=== PATIENT | female | born 1960 | race Caucasian/White ===

== ENCOUNTER 2016-11-10 07:30 | Inpatient (IN) | payer BC ==
--- NOTE | 2017-01-06 16:50 | HP ---
HISTORY AND PHYSICAL: DATE OF ADMISSION/SURGERY: 01/14/17 PROCEDURE: Revision left uni knee to total knee arthroplasty. CHIEF COMPLAINT: Left knee pain. HISTORY OF PRESENT ILLNESS: Ms. Caraballo is a 56-year-old female who underwent a partial knee replacement in July 2015. She continues to have pain in the left knee and has failed conservative management and has elected to proceed with a revision/conversion to a total knee arthroplasty on the left. The surgery is scheduled for 01/14/[address] Arciniega. PAST MEDICAL HISTORY: 1. Hypothyroidism. 2. High cholesterol. 3. Sleep apnea. PAST SURGICAL HISTORY: 1. Partial thyroidectomy. 2. Left partial knee replacement. 3. Cholecystectomy. 4. Hysterectomy. 5. Gastric sleeve. CURRENT MEDICATIONS: 1. Levothyroxine. 2. Crestor. 3. Effexor. 4. Vitamin D. 5. Tramadol. ALLERGIES: To AUGMENTIN. FAMILY HISTORY: Hypertension, heart disease, coronary artery disease. Pancreatic, colon and lung cancer. SOCIAL HISTORY: This is a 56-year-old female, she lives with her . She is retired. She does not smoke or use drugs. Uses occasional alcohol. REVIEW OF SYSTEMS: A complete 14-point review of systems was reviewed with the patient, all was negative or noncontributory except for history of hypothyroidism status post partial thyroidectomy. PHYSICAL EXAMINATION GENERAL: She is well developed, well nourished, in no acute distress. VITAL SIGNS: She stands 5 feet 6 inches tall, weighs 214 pounds. Her blood pressure is 120/80, heart rate is 76. HEENT: Normocephalic, atraumatic. NECK: Supple. No palpable lymph nodes. Trachea is midline. CARDIOLOGIC: Regular rate and rhythm. Strong S1 and S2. PULMONARY: Lungs are clear to auscultation bilaterally. ABDOMEN: Soft, nontender, nondistended. MUSCULOSKELETAL: Left lower extremity, the skin is intact. She has tenderness over the medial and lateral joint line. She has a mild joint effusion. She has 2+ dorsalis pedis pulses and intact sensation. NEUROLOGICAL: She is alert and oriented x3. Cranial nerves II through XII are intact. ASSESSMENT AND PLAN: Ms. Caraballo is a 56-year-old female who complains of left knee pain. She underwent a partial total knee in July 2015 and plans to have it revised and converted to a total knee replacement with Dr. Arciniega on 01/14/17. Dr. Arciniega discussed the risks and benefits of the surgery at today's visit and all of her questions were answered. Coumadin, Colace and Percocet were sent to her pharmacy for postoperative pain control and DVT prophylaxis. She will see Dr. Arciniega back 10 to 14 days after the surgery. ALEA MCKAY [id number]/[facility] #: [id number] MTDD
[2017-01-14] MEDS ORDERED: Famotidine IV* 10 MG/ML 2 ML (20 mg) IV ONE (06:00)
[2017-01-14] MEDS ORDERED: Buffered Lidocaine 1% SYRIN* 3 ML/SYR SYRINGE INTRADERM ONE (06:00)
[2017-01-14] MEDS ORDERED: Dexamethasone IV* 4 MG/ML 1 ML (4 MG) IV SLOW PU ONE (06:00)
[2017-01-14] MEDS ORDERED: fentaNYL* 50 MCG/ML 2 ML VIAL (100 MCG VIAL) ONE ×3 (07:23→10:52)
[2017-01-14] MEDS ORDERED: Midazolam* 1 MG/ML 5 ML VIAL (5 MG) ONE (07:23)
[2017-01-14] MEDS ORDERED: HYDROmorphone* 1 MG/ML 1 ML SYR ONE ×3 (07:23→12:00)
[2017-01-14] MEDS ORDERED: Morphine PF AMP (0.5MG/ML)* 5 MG/10 ML AMP ONE (07:23)
[2017-01-14] MEDS ORDERED: Dexamethasone IV* 4 MG/ML 1 ML (4 MG) ONE (07:58)
[2017-01-14] MEDS ORDERED: Famotidine IV* 10 MG/ML 2 ML (20 mg) ONE (07:58)
[2017-01-14] MEDS ORDERED: Clindamycin 900 MG IVPREMIX(* 900 MG/50 ML SDV IV ONE (07:58)
[2017-01-14] MEDS ORDERED: Dexmedetomidine* 200 MCG/2 ML 2 ML VIAL ONE (08:03)
[2017-01-14] MEDS ORDERED: Propofol* 10 MG/ML 20 ML BTL IV PUSH ONE ×2 (08:03→13:04)
[2017-01-14] MEDS ORDERED: Bupivacaine 0.5% SDV PF* 30 ML VIAL ONE ×2 (08:03→12:02)
[2017-01-14] MEDS ORDERED: PROCHLORPERAZINE INJ 5 MG/ML 2 ML VIAL IV PRN ×2 (08:48→10:29)
[2017-01-14] MEDS ORDERED: Ondansetron INJ* 2 MG/ML VIAL IV PRN ×2 (08:48→10:29)
[2017-01-14] MEDS ORDERED: DiMENhydriNATE IV* 50 MG/ML VIAL IV PUSH PRN ×2 (08:48→10:29)
[2017-01-14] MEDS ORDERED: fentaNYL* 50 MCG/ML 2 ML VIAL (100 MCG VIAL) IV PRN (08:48)
[2017-01-14] MEDS ORDERED: Naloxone* 0.4 MG/ML 1 ML VIAL IV PRN (10:29)
[2017-01-14] MEDS ORDERED: diPHENhydraMINE IV* 50 MG/ML 1 ml VIAL (BENADRYL) IV PRN (10:29)
[2017-01-14] MEDS ORDERED: Polyethylene Glycol 3350* 17 GM PACKET PO PRN (13:49)
[2017-01-14] MEDS ORDERED: LACTULOSE* 30 ML UDC PO PRN (13:49)
[2017-01-14] MEDS ORDERED: Bisacodyl SUPP* 10 MG SUPP PR PRN (13:49)
[2017-01-14] MEDS ORDERED: Acetaminophen TAB* 325 MG PO PRN (13:49)
--- NOTE | 2017-01-14 14:34 | RAD ---
HISTORY: Status post left knee arthroplasty COMPARISONS: January 06, 2017 VIEWS: 2, Frontal and lateral views of the left knee FINDINGS: BONE DENSITY: Normal. BONES: The patient is status post left knee arthroplasty. There is no hardware failure or osteolysis. JOINTS: The patient is status post left knee arthroplasty ALIGNMENT: There is no dislocation. SOFT TISSUES: Unremarkable. OTHER FINDINGS: None. IMPRESSION: STATUS POST LEFT KNEE ARTHROPLASTY
[2017-01-14] MEDS ORDERED: Nalbuphine* 20 MG/ML 1 ML VIAL ONE (16:27)
[2017-01-14] MEDS: Nalbuphine* 20 MG/ML 1 ML VIAL IV PRN (16:32)
[2017-01-14] MEDS ORDERED: Warfarin TAB(*) 4 MG PO ONE (17:00)
[2017-01-14] MEDS: Clindamycin 600 MG IVPREMIX(* 600 MG/50 ML SDV IV SCH (17:20)
[2017-01-14] MEDS: oxyCODONE/Acetamin 5/325 MG* TAB PO PRN ×2 (19:11→23:53)
[2017-01-14] MEDS ORDERED: Venlafaxine EXT RELEASE CAP* 75 MG PO SCH (21:00)
[2017-01-14] MEDS: Magnesium Hydroxide LIQ* 30 ML UDC PO SCH (21:15)
[2017-01-14] MEDS: Docusate CAP* 100 MG PO SCH (21:15)
[2017-01-14] MEDS: VENLAFAXINE 75 MG PO SCH (21:42)
[2017-01-15] MEDS: Clindamycin 600 MG IVPREMIX(* 600 MG/50 ML SDV IV SCH ×2 (01:25→08:20)
[2017-01-15] MEDS: Nalbuphine* 20 MG/ML 1 ML VIAL IV PRN (01:29)
[2017-01-15] MEDS ORDERED: Morphine INJ* 10 MG/ML 1 ML SYRINGE IV PRN (02:00)
[2017-01-15] MEDS ORDERED: oxyCODONE/Acetamin 5/325 MG* TAB PO PRN (02:00)
[2017-01-15] MEDS ORDERED: Ondansetron INJ* 2 MG/ML VIAL IV PRN (02:00)
[2017-01-15] MEDS ORDERED: Ondansetron TAB* 4 MG PO PRN (02:00)
--- NOTE | 2017-01-15 02:08 | OP ---
DATE OF OPERATION: 01/14/17 - ROOM #340 DATE OF : 62 SURGEON: Babita Arciniega MD BARREL WASHER: ALEA Roberson ANESTHESIOLOGIST: Dr. Bhardwaj. ANESTHESIA: Spinal with adductor canal block. PRE-OP DIAGNOSIS: Failed painful left medial uni-arthroplasty secondary to periprosthetic fracture and ligamentous instability. POST-OP DIAGNOSIS: Failed painful left medial uni-arthroplasty secondary to periprosthetic fracture and ligamentous instability. OPERATIVE PROCEDURE: Revision, left total knee arthroplasty. INDICATIONS: Ms. Caraballo is a 56-year-old female, who underwent a left knee medial uni-arthroplasty at an outside facility approximately one year ago. Since the time of surgery, she continued to have severe left knee pain and post- operatively without increasing valgus deformity and MCL incompetence. When she first saw me in clinic, the valgus deformity and MCL incompetence were obvious. Radiographs showed patellar fracture longitudinally along the medial patellar facet. We allowed this to heal nonoperatively. The patient then went on to have a fall and I questioned a medial tibial plateau fracture. We allowed this to heal as well. The patient wished to undergo revision left total knee arthroplasty due to continued pain, instability in the knee, and decreased quality of life. Informed consent was obtained from the patient. She understood the risks of procedure included but were not limited to bleeding, infection, damage to nearby structures, continued pain, continued instability, need for further surgery, intraoperative fracture, nerve palsy, stiffness or loss of motion, hardware failure or loosening, stroke, heart attack, blood clot , and . She wished to proceed. COMPLICATIONS: None. TOURNIQUET TIME: 73 minutes. ESTIMATED BLOOD LOSS: 400 cc. HARDWARE USED: This is a cemented [employer] total knee hardware. Two packages of Simplex cement with tobramycin were used. For the femur, a size 5 left narrow Oxinium femoral component. For the tibia, a size 3 left tibial baseplate, 32-mm 3-peg All-Poly patella, and for the insert, a 50-mm constrained articular insert size 3-4. INTRAOPERATIVE FINDINGS: Intraoperatively, the patient was noted to have a 20- degree valgus deformity with MCL incompetence. LCL was competent. The patient has minimal bone loss along the medial femoral condyle distally and posteriorly after removal of the implant. There was some minimal bone loss along the medial tibial plateau with removal of the implant. No obvious fracture around the medial tibial plateau. The prior patellar fracture was visible. Patella had significant loss of cartilage and this was able to be resurfaced without difficulty. DESCRIPTION OF PROCEDURE: Ms. Caraballo was identified in the preanesthesia unit. Her left lower extremity was marked as the correct operative side. Informed consent was signed and placed in the chart. The patient was taken to the operating room and placed under spinal anesthesia with an adductor canal block. Trujillo catheter was placed. Thigh-high tourniquet was placed on the left thigh. The left lower extremity was prepped and draped in the usual sterile fashion. Preop time- out was made to correctly identify the patient's side and site. Appropriate perioperative antibiotics were given within 1 hour of incision. Tourniquet was inflated and total tourniquet time for this procedure was 73 minutes. The patient's prior incision was used and this was extended another 5 cm proximally. Incision was carried down to the extensor mechanism. A new 10 blade was used to make a standard medial parapatellar arthrotomy. Patella was subluxed laterally. Joint fluid was obtained with culture swabs and sent for cultures and sensitivities. Soft tissue sample was also obtained and sent for cultures and sensitivities. There was no obvious purulence or infection. Uni- arthroplasty was clearly visible. The MCL was incompetent, which was known preoperatively. The polyethylene spacer was easily removed with an osteotome. Electrocautery was used to remove any fibrous scar tissue from the medial or lateral gutter. Also, suprapatellar pouch had some fibrous scar tissue, which was removed. Electrocautery was then used to conservatively elevate soft tissue off the superomedial tibia to the mid sagittal plane. The knee was flexed up. The anterior horn of the lateral meniscus and ACL were sharply released. A small oscillating saw was then used to disrupt the cement hardware junction of the femoral and tibial component. This was further broken with a flexible osteotome. A bone tamp was then used to easily remove the femoral component with no significant bone loss associated. Next, a rigid osteotome was used to carefully remove the tibial component with no significant bone loss. There was some cement along the medial tibial plateau. Slight bone loss along the distal and posterior aspect of the medial femoral condyle. A drill was used to enter the distal femur. Intramedullary distal femoral cutting guide was placed, which was 3-degree valgus and this was pinned on the distal femur. Allowance was made for the prior implant. Oscillating saw was used to make the distal femoral cut. Next, the external rotation guide was carefully pinned on the distal femur. Distal femur was sized to a size 5. The size 5 left multi- cutting jig was pinned on the distal femur. Oscillating saw was used to make the appropriate chamfer cut. It was noted that there was only minimal bone loss along the distal and posterior medial femoral condyle. Chamfer cuts did take some bone with all four chamfer cuts. PCL was completely released and the tibia was subluxed anteriorly. There was a large amount of osteophyte along the posteromedial tibia and this was removed carefully. Extramedullary tibial cutting guide was pinned on the proximal tibia. 9 mm of bone was taken off the lateral side. This did take 1 mm of bone and cement along the medial tibial plateau. The knee was brought out into full extension. The spacer block had good fit. Once again, the MCL laxity was noted. Flexion and extension gaps were well balanced. Knee was flexed up. The lamina assistant dean was placed both medially and laterally. Any remaining meniscus was carefully removed with electrocautery. Curved osteotome was used to remove any posterior osteophytes. Tibial tray and drop charles once again confirmed satisfactory proximal tibial cut. Size 5 left narrow femoral component trial was impacted on to the distal femur and had good fit. The box for the posterior stabilized implant was prepared using a reamer and box cut osteotome. Size 3 tibial trial with a 13-mm constrained insert trial was placed and the knee was taken through range of motion. The knee had much improved medial and lateral ligamentous stability. There was full extension to 130 degrees of flexion with good patellofemoral tracking. The patella was everted at this point. Prior medial patellar facet fracture was noted. 9 mm of bone and cartilage was carefully removed from the patella using an oscillating saw. Patella was sized to a size 32. Three peg holes were drilled to the size 32 patella. 32 trial patella was placed and the knee was taken through range of motion. The knee had good patellofemoral tracking. C-arm was used at this point to ensure proximal tibial cut was satisfactory. The AP view showed satisfactory proximal tibial cut. All trials were carefully removed. The tibia was subluxed anteriorly and sized to a size 3. Any cement remaining was carefully removed with a curette from the medial tibial plateau. A size 3 keel punch was used to prepare the proximal tibia. All bony cut surfaces were copiously irrigated with sterile saline and dried. Final implants were cemented into place starting with the tibia followed by the femur and lastly the patella. A 15-mm insert trial was placed while the knee was brought out into full extension. The cement was allowed to fully cure. Tourniquet was turned down at 73 minutes. Once the cement had fully cured, the insert trial was removed. Any excess cement was carefully removed. Electrocautery was used to obtain meticulous hemostasis. Final insert chosen was a 15-mm constrained articular insert. This was locked into position on the tibial tray without difficulty. Stability of the insert was checked and rechecked and noted to be stable. Final range of motion was full extension to 125 degrees of flexion. There was good alignment with about 3 degrees of valgus. The knee was copiously irrigated with sterile saline. The extensor mechanism was closed over medium Hemovac drain using interrupted #1 Vicryls. The rest of the incision was closed in a layered fashion using 0 and 2-0 Vicryls. Skin was closed using running 3-0 nylon suture. Sterile Xeroform, 4x4s, and Webril were used to cover the incision. Herman wrap and cold pack were placed over this. The patient's anesthesia was reversed without difficulty. She was taken to the PACU in stable condition. Intended weightbearing will be weightbearing as tolerated. Intended DVT prophylaxis will be Coumadin with Lovenox bridge. [id number]/[facility] #: [id number] ALEXANDER
[2017-01-15] MEDS: oxyCODONE/Acetamin 5/325 MG* TAB PO PRN ×4 (04:49→20:08)
[2017-01-15] MEDS: diPHENhydraMINE IV* 50 MG/ML 1 ml VIAL (BENADRYL) IV PRN ×2 (04:54→11:31)
[2017-01-15] MEDS: Levothyroxine TAB* 100 MCG TAB PO SCH (05:38)
[2017-01-15 06:29] LABS: Hematocrit 33 % (35-47); Hemoglobin 10.8 g/dl (12.0-16.0)
[2017-01-15 06:51] LABS: BUN/Creatinine Ratio 18.2 (8-20); Calcium 8.3 mg/dL (8.6-10.3); EGFR African American 119.6 (>60)
--- NOTE | 2017-01-15 07:37 | PN ---
Progress Note - Progress Note SOAP: Subjective: Pt. reports pain is controlled. Objective: LLE - drain removed with tip intact, 300 cc ss drainage. distally +df/pf, full sens lt, 2+ dp pulse. Vital Signs: Temp Pulse Resp BP Pulse Ox 98.0 F 81 18 99/48 96 01/15/17 04:27 01/15/17 04:27 01/15/17 06:49 01/15/17 04:27 01/15/17 04:27 Laboratory Results - last 24 hr 01/15/17 01/15/17 01/15/17 06:06 06:06 06:06 Hgb 10.8 L Hct 33 L INR (Anticoag Therapy) 1.06 Sodium 135 Potassium 4.0 Chloride 103 Carbon Dioxide 28 Anion Gap 4 BUN 12 Creatinine 0.66 Est GFR ( Amer) 119.6 Est GFR (Non-Af Amer) 93.0 BUN/Creatinine Ratio 18.2 Glucose 188 H Calcium 8.3 L Assessment: 56 yo F pod 1 s/p revision LTKA Plan: wbat lle - mcl incompetence so higher fall risk pt/ot 8 mg coumadin tonight, lovenox bridge plan d/c to home 4 AM
[2017-01-15] MEDS: VENLAFAXINE 75 MG PO SCH ×2 (08:19→20:07)
[2017-01-15] MEDS: Vitamin THERAPEUTIC TAB PO SCH (08:19)
[2017-01-15] MEDS: Docusate CAP* 100 MG PO SCH ×2 (08:19→20:07)
[2017-01-15] MEDS: oxyCODONE TAB* 5 MG TAB PO PRN ×2 (08:19→13:02)
[2017-01-15] MEDS: Magnesium Hydroxide LIQ* 30 ML UDC PO SCH ×2 (08:20→20:07)
[2017-01-15] MEDS: Atorvastatin* 10 MG TAB PO SCH ×2 (10:48→20:07)
[2017-01-15] MEDS: Enoxaparin(*) 30 MG/0.3 ML SYR SUBCUT SCH (11:32)
[2017-01-16] MEDS: oxyCODONE/Acetamin 5/325 MG* TAB PO PRN ×3 (00:08→08:15)
[2017-01-16] MEDS: Levothyroxine TAB* 100 MCG TAB PO SCH (05:37)
[2017-01-16 06:32] LABS: Hematocrit 33 % (35-47); Hemoglobin 10.7 g/dl (12.0-16.0)
[2017-01-16] MEDS: oxyCODONE TAB* 5 MG TAB PO PRN (07:05)
[2017-01-16] MEDS: Magnesium Hydroxide LIQ* 30 ML UDC PO SCH (07:09)
[2017-01-16 07:39] VITALS: BP 123/66
[2017-01-16] MEDS: Vitamin THERAPEUTIC TAB PO SCH (08:11)
[2017-01-16] MEDS: VENLAFAXINE 75 MG PO SCH (08:11)
[2017-01-16] MEDS: Docusate CAP* 100 MG PO SCH (08:11)
[2017-01-16] MEDS: Enoxaparin(*) 30 MG/0.3 ML SYR SUBCUT SCH (10:10)
--- NOTE | 2017-01-16 10:18 | PN ---
Progress Note - Progress Note SOAP: SOAP: Subjective: Pt was seen this morning while in bed. She states that she is doing quite well. Pain is well controlled. Pt states that she is ready to go home today. She states she is doing well in PT. Objective: LLE - sensation is intact to light touch distally. She is able to dorsiflex and planterflex ankle. 2+ dp and pt pulses. Vital Signs Temp 98.5 F 01/16/17 07:21 Pulse 83 01/16/17 07:21 Resp 18 01/16/17 10:01 BP 123/66 01/16/17 07:21 Pulse Ox 97 01/16/17 07:51 Intake & Output 01/15/17 01/16/17 01/16/17 18:59 06:59 18:59 Intake Total 540 880 210 Output Total 2200 1200 1300 Balance -1660 -320 -1090 Intake: Oral 540 880 210 Output: Urine 500 1200 1300 Trujillo 1700 Assessment: POD2 s/p revision LTKA Plan: wbat lle - mcl incompetence so higher fall risk morning session of pt/ot Pt will be discharged on Aspirin 325 bid for DVT prophylaxis Pt will sent oxymorphone 15mg and Oxycodone 5mg Pt will follow up in office in 10 - 14 days
[2017-01-16] MEDS ORDERED: Enoxaparin(*) 30 MG/0.3 ML SYR SUBCUT ONE (10:59)
--- NOTE | 2017-01-18 07:50 | DS ---
DISCHARGE SUMMARY: DATE OF ADMISSION: 01/14/17 DATE OF DISCHARGE: 01/16/17 PROVIDER: Dr. Babita Arciniega. ADMITTING DIAGNOSIS: Revision left total knee arthroplasty. CONSULTATIONS: Physical Therapy and Occupational Therapy. HISTORY OF PRESENT ILLNESS: A 56-year-old female who underwent a partial knee replacement in July 2015. Continues to have pain in the left knee and wanted to pursue a revision to a left total knee arthroplasty. HOSPITAL COURSE: The patient was admitted to [facility] on 01/14/17 and underwent a revision left total knee arthroplasty. No complications. The patient recovered briefly in the postop anesthesia care unit and was then transferred to the short stay surgical unit in stable condition. On postoperative day #1, the patient's H and H were 10.8 and 33. INR was 1.06 after 8 mg of Coumadin the night before. Dressing was clean, dry, and intact. Left lower extremity was neurovascularly intact. She could demonstrate dorsiflexion, plantar flexion, and good strength. The patient was able to get out of bed with physical therapy. Pain was controlled with oxycodone 10 mg. On postop day 2, the urinary catheter was discontinued and the patient was able to void without difficulty. Incision was found to be benign with minimal drainage, no erythema or warmth. The patient's H and H were 10.7 and 33. INR was 1.21. Pain was controlled with oxycodone 10 again. The patient was able to ambulate using a rolling walker. The patient's pain was well controlled and found to be stable for discharge. Throughout the hospital course, vital signs remained stable and the patient was afebrile. DISCHARGE CONDITION: Good. DISCHARGE MEDICATIONS: 1. Aspirin 325 b.i.d. 2. Oxymorphone 15 mg. 3. Oxycodone 5 mg. HOME MEDICATIONS TO RESUME: 1. Levothyroxine. 2. Crestor. 3. Effexor. 4. Vitamin D. DISCHARGE INSTRUCTIONS: For pain and swelling, utilize the cryotherapy unit. Take the oxycodone/Percocet 5/325 every 4 to 6 hours as needed for pain. Take oxymorphone 15 mg 1 tab every 12 hours as needed for pain. DVT prophylaxis: Please take aspirin 325 mg 1 tab twice a day. Continue weightbearing as tolerated on the left lower extremity. Follow up in 10 to 14 days to have sutures removed. Dressing to be kept clean and dry. Small amount of clear drainage or bleeding could be normal. Call office if swelling or pain in your calf muscle develops, thick white or greenish discharge is coming from the wound, if wound has increased in redness, temperature greater than 101.5. Go to the ER if you experience: 1. Chest pain. 2. Breathing problems. ALEA VELASQUEZ [id number]/[facility] #: [id number] ALEXANDER
== END 2017-01-16 11:40 | disposition home or self-care (01) | DRG 302 ==
LOC: AA 01-14 07:50 → SSU 01-14 15:58
PROVIDERS: ADMIT Orthopaedic Surgery Adult Reconstructive Orthopaedic Surgery; ATTEND Orthopaedic Surgery Adult Reconstructive Orthopaedic Surgery
PROC: 0SPD0JZ Removal of Synthetic Substitute from Left Knee Joint, Open Approach (ICD-10-PCS; 2017-01-14)
PROC: 0SPD09Z Removal of Liner from Left Knee Joint, Open Approach (ICD-10-PCS; 2017-01-14)
PROC: 0SUW09Z Supplement Left Knee Joint, Tibial Surface with Liner, Open Approach (ICD-10-PCS; 2017-01-14)
PROC: 0SRD0J9 Replacement of Left Knee Joint with Synthetic Substitute, Cemented, Open Approach (ICD-10-PCS; principal; 2017-01-14 10:00)
DX: T84.84XA Pain due to internal orthopedic prosthetic devices, implants and grafts, initial encounter (principal); S82.142A Displaced bicondylar fracture of left tibia, initial encounter for closed fracture; M97.12XA Periprosthetic fracture around internal prosthetic left knee joint, initial encounter; I10 Essential (primary) hypertension; M25.362 Other instability, left knee; M21.062 Valgus deformity, not elsewhere classified, left knee; E03.9 Hypothyroidism, unspecified; E78.00 Pure hypercholesterolemia, unspecified; G47.33 Obstructive sleep apnea (adult) (pediatric); Y83.8 Other surgical procedures as the cause of abnormal reaction of the patient, or of later complication, without mention of misadventure at the time of the procedure; M25.762 Osteophyte, left knee; M19.90 Unspecified osteoarthritis, unspecified site; Z90.710 Acquired absence of both cervix and uterus; Z98.84 Bariatric surgery status; Z88.0 Allergy status to penicillin; Z82.49 Family history of ischemic heart disease and other diseases of the circulatory system; Z80.0 Family history of malignant neoplasm of digestive organs; Z80.1 Family history of malignant neoplasm of trachea, bronchus and lung; Z87.891 Personal history of nicotine dependence; Z79.82 Long term (current) use of aspirin; Y79.2 Prosthetic and other implants, materials and accessory orthopedic devices associated with adverse incidents; Y92.9 Unspecified place or not applicable; W19.XXXA Unspecified fall, initial encounter
CPT/HCPCS: 36415; 80048; 85014; 85018; 85610; 87070; 87073; 87205; 88300; 94760; A9270-GY; C1776; J1100; J1170; J1200; J1650; J2250; J2300; J2704; J3010

== ENCOUNTER 2018-01-28 07:09 | Day surgery (SDC) | payer BC ==
--- NOTE | 2018-01-21 00:46 | HP ---
CC: Dr. Carl Carroll, [facility]; [facility] * HISTORY AND PHYSICAL: DATE OF ADMISSION: 01/28/18 ATTENDING SURGEON: Ginger Lange MD * (DICTATED BY ALEA MURDOCK) CHIEF COMPLAINT: Right breast cancer; left breast atypical ductal hyperplasia. HISTORY OF PRESENT ILLNESS: This is a 57-year-old female who underwent routine screening mammography on 01/05/[address] [facility]. The mammogram showed architectural distortion in the left breast and MRI was recommended. That study was performed on 01/12/18, showing an enhancing mass in the right breast at the 12 o'clock position measuring up to 0.8 cm. In addition, architectural distortion in the left breast was confirmed which was consistent with similar finding on the mammogram. These changes were located around the 2:30 position on the left breast, measuring up to 1.5 cm in greatest dimension. The patient had undergone prior biopsy of a benign lesion in the left breast 3 o'clock position in 2011. A biopsy clip was left in place at that time. Biopsies of both the right breast mass and left breast architectural distortion were performed on 01/12/18. The right breast lesion 12 o'clock position consistent with invasive carcinoma with lobular features. The biopsy on the left showed radial scar with proliferative fibrocystic changes and focal atypical ductal hyperplasia. A surgical referral was made and the patient was seen in the office by Dr. Lange on 01/18/18. The patient' s past breast history is outlined in her chart record. Her only prior biopsy was that on the left as noted above. She did undergo ROSE with BSO for benign disease in 2003 and did take supplemental estrogen for 4 to 5 year period thereafter. Her family history is positive for breast cancer in a maternal grandmother who around age 74 from unrelated causes and a paternal grandmother who in her late 60s of ovarian cancer. The patient was seen in the office by Dr. Lange on 01/18/18. Examination at that time showed moderate ecchymosis in the right superior breast and minor ecchymosis in the lateral aspect of the left breast with nodularity palpable at both sites. Also noted was shotty left lymph nodes. There were no other discrete or dominant masses in either breast. Dr. Lange has discussed with her the options for surgery, the indications, risks, benefits and alternatives. The patient would like to proceed as scheduled with excision right breast cancer after needle localization with sentinel lymph node biopsy. Also, she will undergo concurrently excision of left breast atypical ductal hyperplasia following needle localization. Of note, a biopsy clip was placed after each of the most recent biopsy procedures and these details were discussed specifically with the radiologist. PAST MEDICAL HISTORY: 1. Hypothyroidism (on replacement). 2. History of morbid obesity (status post sleeve gastrectomy) with net weight loss of approximately 25 pounds. 3. GERD. 4. Obstructive sleep apnea (on CPAP). 5. Hyperlipidemia. 6. Anxiety. PAST SURGICAL HISTORY: Includes: 1. Left breast biopsy as noted above. 2. Left thyroid lobectomy for benign disease. 3. Left total knee replacement in 2017 after prior partial knee replacement. 4. Open cholecystectomy. 5. Laparoscopic sleeve gastrectomy in 2013 done in [place]. CURRENT MEDICATIONS: 1. Meloxicam 15 mg once daily. 2. Levothyroxine 100 mcg once daily. 3. Crestor 20 mg one-half tablet once daily. 4. Effexor 75 mg b.i.d. 5. Omeprazole 20 mg daily. 6. Klonopin 0.5 mg b.i.d. p.r.n. anxiety. DRUG ALLERGIES: AUGMENTIN (hives). (The patient has taken amoxicillin subsequently with no side effects). FAMILY HISTORY: As noted above. SOCIAL HISTORY: The patient is . She has 3 children. 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 She quit smoking over 20 years ago. She drinks alcohol infrequently ( less than 1 drink monthly). She denies any other recreational drug use. REVIEW OF SYSTEMS: General: No recent constitutional symptoms or acute illnesses. Weight has been stable. Cardiovascular: No recent chest pain or palpitations. She was evaluated a number of years ago for chest pain, workup being negative at that time and no recurrent problems. She was previously treated for hypertension before her weight loss surgery. History of heart murmur only during . Respiratory: No history of asthma, chronic cough or shortness of breath. She is treated for sleep apnea with CPAP. GI: GERD symptoms currently controlled. No lower GI symptoms. She has undergone a colonoscopy most recently 3 years ago with 5-year recommended followup and previous polyp removal, all benign. : No problems reported. 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 Endocrine: She is on thyroid replacement. No history of diabetes. PHYSICAL EXAMINATION GENERAL: Well-nourished, well-developed somewhat obese female in no acute distress. VITAL SIGNS: Height 66 inches, weight 220 pounds, BMI 35.5. Blood pressure 128 /80, pulse 80, respirations 16. HEENT: Pupils are equal, round, and reactive. EOMs intact. No conjunctival pallor. Oropharynx: Teeth in good repair. No intraoral lesions. NECK: No cervical or supraclavicular lymphadenopathy. She has a well-healed scar from prior thyroid lobectomy, no masses. LUNGS: Clear to auscultation. No rales or wheezes. HEART: Regular rate and rhythm. No murmur appreciated. BREASTS: Not reexamined (see above per Dr. Lange's exam). ABDOMEN: Soft, nontender to palpation. No palpable masses or organomegaly. GENITALIA: Not done. RECTAL: Not done. BACK: No spinous process or CVA tenderness. EXTREMITIES: No edema. NEUROLOGIC: Grossly intact. SKIN: Warm and dry. No suspicious rashes or lesions. IMPRESSION: 1. Right breast cancer. 2. Left breast atypical ductal hyperplasia. PLAN: 1. Excision right breast cancer (following needle localization) with sentinel lymph node biopsy. 2. Excision left breast atypical ductal hyperplasia (following needle localization). ALEA MURDOCK [id number]/[facility] #: [id number] [facility]ITALKenia
[~2018-01-28 07:09] MED LIST: Buffered Lidocaine 0.9% SYRIN* 5 ML/SYR SYRINGE INTRADERM ONE
[2018-01-28] MEDS ORDERED: Lidocaine 2.5%/Prilocain 2.5%* 5 GM TUBE ONE (07:13)
[2018-01-28] MEDS ORDERED: ceFAZolin 2 GM PREMIX (*) 2 GM/50 ML BAG IVPB ONE (07:13)
--- NOTE | 2018-01-28 09:35 | RAD ---
PROCEDURE: 1. Mammographic needle/wire localization of the right breast 2. Mammographic needle/wire localization of the left breast PREOPERATIVE DIAGNOSIS: Breast cancer, atypical ductal hyperplasia POSTOPERATIVE DIAGNOSIS: Same COMPARISONS: January 12, 2018, January 05, 2018 MODEL AND MOLD MAKER PLASTER: Polo Talamantes MD ANESTHESIA: Local anesthesia with 1% lidocaine without epinephrine FLUOROSCOPY TIME: None CONTRAST: None PROCEDURAL NARRATIVE: The procedure was explained to the patient who indicated understanding. Written and verbal informed consent was obtained. An opportunity was given to ask and answer questions. A timeout was performed. The patient was prepped and draped in the usual sterile fashion. Using mammographic guidance, a needle/wire localization system was advanced to the target lesion in the right breast. Once position was confirmed, the needle was removed using pin pull technique. Post localization mammography was performed. The wound was dressed and the wire was secured. A timeout was performed. The patient was prepped and draped in the usual sterile fashion. Using mammographic guidance, a needle/wire localization system was advanced to the target lesion in the left breast. The clip was distinguished from a previous biopsy marker clip that is visible on earlier imaging.. Once position was confirmed, the needle was removed using pin pull technique. Post localization mammography was performed. The wound was dressed and the wire was secured. FINDINGS: On the right, a ribbon-shaped clip is noted in the 12:00 position of the right breast. The tip of the wire is closely associated with a clip. On the left, a T-shaped clip is noted in the left outer breast, in the approximately 3:00 position, corresponding to the most recent biopsy marker clip. This is distinct from a bar-shaped clip in the left upper outer breast that is present on earlier imaging. The tip of the hook wire is in close proximity to the T-shaped clip. SPECIMENS: Histology is pending COMPLICATIONS: None DISPOSITION: The patient tolerated the procedure well, without complications during or immediately following the procedure. The patient was sent to the nuclear medicine suite in good, stable condition. IMPRESSION: 1. TECHNICALLY SUCCESSFUL, UNCOMPLICATED, MAMMOGRAPHICALLY GUIDED NEEDLE/WIRE LOCALIZATION OF THE RIGHT BREAST. 2. TECHNICALLY SUCCESSFUL, UNCOMPLICATED, MAMMOGRAPHICALLY GUIDED NEEDLE/WIRE LOCALIZATION OF THE LEFT BREAST. 3. HISTOLOGY IS PENDING
--- NOTE | 2018-01-28 10:25 | RAD ---
HISTORY: Breast cancer. Lymphoscintigraphy of the breast for the purposes of sentinel node identification. COMPARISONS: Mammogram dated January 28, 2018 TECHNIQUE: Previous imaging was reviewed. The procedure was explained to the patient who indicated that she understood. Written and verbal informed consent was obtained, with an opportunity to ask and answer questions. The breast was marked. A timeout was performed. The patient was prepped and draped in the usual sterile fashion. Technetium 99m sulfur colloid was administered in a subdermal fashion in 4 divided aliquots in a 180 degree arc along the areolar margin of the right breast, centered on the position of the primary breast lesion. Cine and planar imaging was performed. The first appearing axillary node was identified with the overlying skin marked. DOSE: Technetium 99m sulfur colloid, 0.32 millicuries, injected at 9:40 AM FINDINGS: Uptake is noted within a right axillary lymph node. The site of uptake is marked on the overlying skin. OTHER: None IMPRESSION: TECHNICALLY SUCCESSFUL, UNCOMPLICATED, LYMPHOSCINTIGRAPHY OF THE RIGHT BREAST FOR THE PURPOSES OF SENTINEL NODE LOCALIZATION. CPT II Codes: 1673L5O
[2018-01-28] MEDS ORDERED: Propofol* 10 MG/ML 20 ML BTL IV PUSH ONE ×2 (13:02→15:29)
[2018-01-28] MEDS ORDERED: Lidocaine 2% PF * 5 ML VIAL ONE (13:03)
[2018-01-28] MEDS ORDERED: Lidocain 1% EPI 1:100,000 * 30 ML MDV ONE (13:04)
[2018-01-28] MEDS ORDERED: Lidocaine 1% INJ* 10 MG/ML 30 ML SDV ONE (13:05)
[2018-01-28] MEDS ORDERED: Bupivacaine 0.25% SDV* 30 ML ONE ×3 (13:05→16:04)
[2018-01-28] MEDS ORDERED: Clindamycin 900 MG IVPREMIX(* 900 MG/50 ML SDV IV ONE ×2 (13:41→13:42)
[2018-01-28] MEDS ORDERED: fentaNYL* 50 MCG/ML 2 ML VIAL (100 MCG VIAL) ONE ×2 (13:42→16:17)
[2018-01-28] MEDS ORDERED: Succinylcholine* 20 MG/ML 10 ML VIAL ONE (14:24)
[2018-01-28] MEDS ORDERED: Dexamethasone IV* 4 MG/ML 1 ML (4 MG) ONE (15:23)
[2018-01-28] MEDS ORDERED: fentaNYL* 50 MCG/ML 2 ML VIAL (100 MCG VIAL) IV PRN (15:38)
[2018-01-28] MEDS ORDERED: Naloxone* 0.4 MG/ML 1 ML VIAL IV PRN (15:38)
[2018-01-28] MEDS ORDERED: Ondansetron INJ* 2 MG/ML VIAL IV PRN (15:38)
--- NOTE | 2018-01-28 16:36 | BRIEFOPN ---
Brief Operative Note - Surgery Procedures: Procedures REMOVAL OF LINER FROM LEFT KNEE JOINT, OPEN APPROACH (01/14/17) REMOVAL OF SYNTH SUB FROM L KNEE JT, OPEN APPROACH (01/14/17) REPLACE OF L KNEE JT WITH SYNTH SUB, CEMENT, OPEN APPROACH (01/14/17) SUPPLEMENT L KNEE JT, TIBIAL WITH LINER, OPEN APPROACH (01/14/17) 01/28/18 Op Note Pre-op dx: right breast cancer left breast atypical ductal hyperplasia Post-op dx: same Procedure: needle localization excision of left ADH and needle localization excision of right breast cancer and sentinel lymph node biopsy Surgeon: Nazario Asst: Blake Anesth: general EBL: 50cc Complications: none Pt. tolerated procedure well and was transferred to in a stable condition. CLFoster
[2018-01-28] MEDS ORDERED: HYDROcodone/ACETAMIN 5-325 MG* 1 TAB PO PRN ×2 (16:37)
[2018-01-28] MEDS ORDERED: Acetaminophen TAB* 325 MG PO PRN (16:37)
[2018-01-28] MEDS ORDERED: Ondansetron INJ* 2 MG/ML VIAL ONE (17:05)
[2018-01-28] MEDS ORDERED: DiMENhydriNATE IV* 50 MG/ML VIAL ONE (17:23)
[2018-01-28 18:34] VITALS: BP 123/71
--- NOTE | 2018-01-29 01:29 | OP ---
CC: [facility]; Dr. Adria Carroll * DATE OF OPERATION: 01/28/18 - [facility] DATE OF : 62 SURGEON: Ginger Lange MD BICYCLE INSPECTOR: Blake. PRE-OP DIAGNOSIS: Right breast cancer, left breast atypical ductal hyperplasia. POST-OP DIAGNOSIS: Right breast cancer, left breast atypical ductal hyperplasia. OPERATIVE PROCEDURE: Needle localization excision of left breast atypical ductal hyperplasia and needle localization excision of right breast cancer and sentinel lymph node biopsy. INDICATIONS: Ms. Caraballo is a 57-year-old woman recently diagnosed with breast cancer who was also found to have atypical ductal hyperplasia in the other side , so plans were made for surgical intervention. On the morning of surgery, she underwent left breast needle localization and right breast needle localization with sentinel lymph node localization on the right. DESCRIPTION OF PROCEDURE: She was then brought to the operating room. She was placed on the OR table in a supine position and given general anesthesia. The chest wall was prepped and draped in the usual sterile fashion including both axillae. The attention was turned first to the left side. The site of the atypical ductal hyperplasia here after infiltrating with local anesthetic, a curvilinear elliptical incision was made encompassing the wire. Subcutaneous tissue was divided with electrocautery to excise massive tissue from around the wire. At the medial most aspect of this, it was recognized that there appeared to be a hard lesion that was just at the end of the specimen, so the decision was made to remove the specimen, separate the hard lesion from the remainder of the specimen and make 2 specimens out of it. Then, since the wire was at the medial edge of the second specimen, the decision was made to remove third massive tissue as well from medial to the first and second areas. Each specimen was labeled with the usual markings and each specimen was identified as 1, 2, and 3, with 2 being medial to 1, and 3 being medial to 2. Hemostasis was assured with electrocautery and suture ligature. Once this was adequate, additional local was instilled into the wound and closure was accomplished. This was done with 3-0 Vicryl in the subcutaneous layer. The skin was closed with 4-0 Prolene in a subcuticular fashion. Attention was then turned to the right side. Here after infiltrating with local anesthetic, a curvilinear elliptical incision was made encompassing the wire. Subcutaneous tissue was divided with electrocautery to excise the massive tissue from around the wire. In the process of doing this, there were some bleeding that was controlled with suture ligature as well as the usual use of cautery. Once the specimen was out , it was marked in the usual fashion and handed off. Hemostasis was assured with electrocautery. Clips were placed in the cavity to raul its confines and additional local was instilled into the wound prior to closing. Closure was accomplished with 3-0 Vicryl in the subcutaneous layer and the skin was closed with 4-0 Surgipro in a subcuticular fashion. It should be mentioned that the report came back from Radiology for both sides that the specimens contained the abnormalities. Attention was then turned to the right axilla. Here, a curvilinear incision was made in the middle axilla and subcutaneous tissue was divided with electrocautery down to the level of the axillary fat pad. Again there was some bleeding, which was controlled with suture ligature and cautery. [place] node was immediately apparent as confirmed by the navigator identifying elevated counts to the level of 1000. This node was excised using sharp and blunt dissection and clips to control small blood and lymphatic vessels that approached the gland. Ex- vivo, the counts were around 900. a search which was made for additional sentinel node and indeed one other node was identified, it was excised and had counts in situ of around 1200 and ex- vivo of a comparable number. The axillary bed counts were around 90. The wound was checked for hemostasis which appeared adequate and then closure was accomplished with 3-0 Vicryl in the subcutaneous layer and the skin was closed with 4-0 Prolene in a subcuticular fashion. Steri-Strips and dry sterile dressings were applied to all incisions. All sponge and instrument counts were correct. The patient tolerated the procedure well and was transferred to Recovery in a stable condition. [id number]/[facility] #: [id number] [facility]ENTERKenia
== END 2018-01-28 18:45 | disposition home or self-care (01) ==
LOC: SDS 07:09
PROVIDERS: ATTEND Surgery
DX: C50.911 Malignant neoplasm of unspecified site of right female breast (principal); N60.92 Unspecified benign mammary dysplasia of left breast; E78.5 Hyperlipidemia, unspecified; E03.9 Hypothyroidism, unspecified; G47.33 Obstructive sleep apnea (adult) (pediatric); F41.9 Anxiety disorder, unspecified; K21.9 Gastro-esophageal reflux disease without esophagitis
CPT/HCPCS: 78195; 88307; 88342; 88360; A9270-GY; A9541; J0330; J0690; J1100; J1240; J2405; J2704; J3010

== ENCOUNTER 2018-08-12 06:16 | Day surgery (SDC) | payer BC ==
--- NOTE | 2018-08-03 14:01 | HP ---
AMENDED REPORT NOW INCLUDES DESIGNATED COSIGNER CC: Dr. Adria Carroll * PREOPERATIVE HISTORY AND PHYSICAL: DATE OF ADMISSION/SURGERY: 08/12/18 This patient is scheduled for same-day surgery admission by Dr. Lange on Wednesday , 08/12/18. DATE OF PREOPERATIVE HISTORY AND PHYSICAL EXAMINATION: 08/03/18. ATTENDING SURGEON: Ginger Lange MD * (dictated by Gretel Krishnan NP) CHIEF COMPLAINT: Left nipple discharge. HISTORY OF PRESENT ILLNESS: The patient is a 57-year-old female well known to Dr. Lange. The patient is status post right breast cancer treated in January 2018 with lumpectomy followed by chemotherapy and radiation. She also had excision of atypical ductal hyperplasia of the left breast that required no additional treatment. She saw Dr. Lange here in our office on 07/28/18 and reported that 2 days prior to that she was just sitting in a chair and felt wetness on her bra and when she checked, she found she was having drainage from the left breast nipple. She was then referred for mammogram and ultrasound; during the mammogram, she reports that there was a significant amount of drainage from the left nipple. The imaging showed seroma in the lateral left breast, but no other obvious pathology. She denies any other breast changes. She has not noticed any skin dimpling or nipple retraction or any new lumps or pain. Dr. Lange examined the patient and noted yellowish nipple discharge from the left breast and a duct in the superior aspect of the nipple. This was negative for blood. Dr. Lange discussed the findings with the patient and has recommended left breast terminal duct excision as a same-day surgery procedure. She described the nature of surgical procedure, the rationale for the procedure, the relevant risks and benefits, and today I reviewed postoperative care and recovery. The patient has had a chance to ask questions and stated that she understands the information and is satisfied with the answers given to her questions. She will sign surgical consent on the day of surgery. PAST MEDICAL HISTORY: 1. Right breast cancer and atypical ductal hyperplasia of left breast as described in history of present illness. 2. Hypothyroidism, on replacement. 3. History of morbid obesity, status post laparoscopic sleeve gastrectomy with weight loss of approximately 25 pounds. 4. GERD. 5. Obstructive sleep apnea, on CPAP. 6. Hyperlipidemia. 7. Anxiety. PAST SURGICAL HISTORY: 1. Right breast lumpectomy. 2. Left breast excision of atypical ductal hyperplasia. 3. Left thyroid lobectomy for benign disease. 4. Left total knee replacement in 2017 after partial knee replacement. 5. Open cholecystectomy. 6. Laparoscopic sleeve gastrectomy in 2014 done in [place]. CURRENT MEDICATIONS: 1. Meloxicam 15 mg p.o. daily with food. 2. Levothyroxine 100 mcg p.o. daily. 3. Crestor 10 mg p.o. daily. 4. Effexor XR 75 p.o. daily. 5. Vitamin D 2000 international units p.o. daily. 6. Omeprazole 20 mg p.o. daily. 7. Klonopin 0.5 mg 1 tablet b.i.d. 8. Anastrozole 1 mg p.o. daily. 9. Adderall as needed for fatigue. ALLERGIES: AUGMENTIN caused hives. 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 She rarely drinks alcohol and denies the use of other substances. FAMILY HISTORY: Positive for breast cancer in her maternal grandmother who around age 74 from unrelated causes and a paternal grandmother who in her late 60s of ovarian cancer. No family history of anesthesia complications, bleeding tendencies, or clotting disorders. REVIEW OF SYSTEMS: Constitutional: No fevers, chills, excessive fatigue, or weight loss. Endocrine: No diabetes; she is on thyroid replacement for hypothyroidism. Hematologic: No easy bruising or bleeding. No history of blood transfusions. Breasts: As described in history of present illness. Respiratory: No dyspnea on exertion. No chronic cough. Cardiovascular: No anginal chest pain or palpitations. Gastrointestinal: No nausea, vomiting, diarrhea, GI bleeding, or constipation. Genitourinary: No dysuria. Musculoskeletal: No back or chronic joint pain. Integumentary: No chronic rashes or skin changes. Neurologic: No headache, blurred vision. No areas of focal weakness or numbness. General: No history of deep vein thrombosis or pulmonary embolism. No previous anesthesia complications. PHYSICAL EXAMINATION GENERAL SURVEY: The patient is a 57-year-old female, well developed, obese, in no acute distress. VITAL SIGNS: Height 66 inches, weight 225 pounds, body mass index 36.3. Blood pressure 138/80, pulse 72 and regular, respiratory rate 18, temperature 97.8 tympanic. HEENT: Benign. NECK: Supple. No cervical or supraclavicular lymphadenopathy; well-healed scar from prior thyroid lobectomy. LUNGS: Breath sounds bilaterally clear and equal. BREASTS: Symmetric with a scar visible in the lateral aspect of the left breast and a scar visible in the superior aspect of the right breast. The right breast scar has a rounded component medially with some dry skin on it; the right breast is also somewhat edematous after radiation; palpation of the left breast reveals in the lateral aspect a round, smooth mass in the region of the scar, no other discrete masses; there was yellow nipple discharge from a duct in the superior aspect of the nipple that was negative for blood. There is no cervical, supraclavicular, or axillary adenopathy. HEART: Regular rate and rhythm. No murmurs or rubs appreciated. ABDOMEN: Active bowel sounds, soft, multiple well healed surgical scars, nondistended, nontender throughout. No obvious masses or organomegaly or evidence of ventral hernia. PELVIC: Exam deferred. RECTAL: Exam deferred. EXTREMITIES: Warm without edema or skin ulcerations. NEUROLOGIC: Alert and oriented x3. Steady gait. SKIN: Warm, dry, intact. IMPRESSION: Left breast nipple discharge. PLAN: Same-day surgery admission to Dr. Lange's service for left breast terminal duct excision on 08/12/18. NILAY KRISHNAN NP [id number]/[facility] #: [id number] [facility]enia
[~2018-08-12 06:16] MED LIST changes: +Dexamethasone IV* 4 MG/ML 1 ML (4 MG) IV SLOW PU ONE; +Famotidine IV* 10 MG/ML 2 ML (20 mg) IV ONE
[2018-08-12] MEDS ORDERED: Famotidine IV* 10 MG/ML 2 ML (20 mg) ONE (06:55)
[2018-08-12] MEDS ORDERED: Heparin VIAL(*) 5000 UNITS/ML VIAL (FIVE THOUSAND) ONE (06:55)
[2018-08-12] MEDS ORDERED: Clindamycin 900 MG/D5W BAG(*) 900 MG/50 ML BAG IVPB ONE (06:55)
[2018-08-12] MEDS ORDERED: Dexamethasone IV* 4 MG/ML 1 ML (4 MG) ONE (06:55)
[2018-08-12] MEDS ORDERED: Bupivacaine 0.5% W/EPI SDV* 30 ML VIAL ONE (06:56)
[2018-08-12] MEDS ORDERED: Bupivacaine 0.5% SDV PF* 30ML VIAL ONE (06:57)
[2018-08-12] MEDS ORDERED: Lidocaine 1% INJ* 10 MG/ML 30 ML SDV ONE (06:57)
[2018-08-12] MEDS ORDERED: fentaNYL* 50 MCG/ML 2 ML VIAL (100 MCG VIAL) IV PRN (07:28)
[2018-08-12] MEDS ORDERED: Scopolamine 1.5 mg* PATCH TRANSDERM PRN (07:28)
[2018-08-12] MEDS ORDERED: oxyCODONE/Acetamin 5/325 MG* TAB PO PRN (07:28)
[2018-08-12] MEDS ORDERED: Ondansetron INJ* 2 MG/ML VIAL IV PRN (07:28)
[2018-08-12] MEDS ORDERED: Naloxone* 0.4 MG/ML 1 ML VIAL IV PRN (07:28)
[2018-08-12] MEDS ORDERED: DiMENhydriNATE IV* 50 MG/ML VIAL IV PUSH PRN (07:28)
--- NOTE | 2018-08-12 07:40 | PN ---
Progress Note - Progress Note Date of Service: 08/12/18 Note: Surgery When I examined Ms. Caraballo before surgery this morning, there was no nipple discharge. Will cancel surgery and f/u in 1 month. CLFoster
[2018-08-12] MEDS ORDERED: Ondansetron INJ* 2 MG/ML VIAL ONE (07:55)
[2018-08-12] MEDS ORDERED: Midazolam* 1 MG/ML 5 ML VIAL (5 MG) ONE (07:55)
[2018-08-12] MEDS ORDERED: fentaNYL* 50 MCG/ML 2 ML VIAL (100 MCG VIAL) ONE (07:55)
[2018-08-12] MEDS ORDERED: Propofol* 10 MG/ML 20 ML BTL IV PUSH ONE ×2 (07:55)
[2018-08-12] MEDS ORDERED: Lidocaine 2% PF * 5 ML VIAL ONE (08:15)
--- NOTE | 2018-08-12 09:46 | BRIEFOPN ---
Brief Operative Note - Surgery Procedures: Procedures REMOVAL OF LINER FROM LEFT KNEE JOINT, OPEN APPROACH (01/14/17) REMOVAL OF SYNTH SUB FROM L KNEE JT, OPEN APPROACH (01/14/17) REPLACE OF L KNEE JT WITH SYNTH SUB, CEMENT, OPEN APPROACH (01/14/17) SUPPLEMENT L KNEE JT, TIBIAL WITH LINER, OPEN APPROACH (01/14/17) 08/12/18 OP Note Pre-op dx: left breast nipple discharge Post-op dx: same Procedure: left breast terminal duct excision Surgeon: Nazario Asst: none Anesth: local-MAC EBL: 5 cc SCDs on during surgery Abx: given pre-op Complications: none Pt. tolerated procedure well and was transferred to in a stable condition CLFoster
[2018-08-12] MEDS ORDERED: Morphine VIAL* 10 MG/ML 1 ML VIAL ONE (09:52)
[2018-08-12 09:53] VITALS: BP 117/68
--- NOTE | 2018-08-15 03:56 | OP ---
CC: [facility]; Dr. Adria Carroll * DATE OF OPERATION: 08/12/18 - [facility] DATE OF : 62. SURGEON: Ginger Lange MD. RESTORATION ECOLOGIST: There was no facilities maintenance assistant for this case. PRE-OP DIAGNOSIS: Left breast nipple discharge. POST-OP DIAGNOSIS: Left breast nipple discharge. OPERATIVE PROCEDURE: Left breast terminal duct excision. INDICATIONS: Ms. Caraballo is a 57-year-old woman with a history of right breast cancer and left breast atypical ductal hyperplasia who noticed recently that she had some nipple discharge. This prompted the plan for terminal duct excision. DESCRIPTION OF PROCEDURE: On the date of surgery, she was brought to the operating room, placed on the OR table in the supine position and given IV sedation. The left breast was prepped and draped in the usual sterile fashion. After infiltrating with local anesthetic, a probe was inserted into the duct that had been marked preoperatively that produced the discharge. Then an incision was made in a circumareolar fashion laterally and subcutaneous tissue was divided with electrocautery and blunt dissection to elevate flap under the areola. Then in the region of the nipple, blunt dissection was used to identify the duct that contained the probe. Once this was isolated, it was grasped with a mosquito clamp and the probe was removed. The duct was divided between clamps and ligated. Then, tissue from around the duct was excised using electrocautery. Once the specimen was removed, it was marked in the usual fashion with the additional marking of a double stitch identifying the duct. This was handed off as a specimen. Hemostasis was assured with electrocautery and in the process of achieving hemostasis, there was an opening made into the cavity of the previous breast biopsy and some fluid was drained from that cavity. Then, once it appeared that hemostasis was adequate, the wound was irrigated with saline. Irrigation fluid was evacuated and then some additional local was instilled into the cavity. Closure was then accomplished with 3-0 Vicryl in the subcutaneous layer and the skin was closed with 4-0 Prolene in the subcuticular fashion. Steri-Strips and a dry sterile dressing were applied. All sponge and instrument counts were correct. The patient tolerated the procedure well and was transferred to Recovery in a stable condition. [id number]/[facility] #: [id number] [facility]
== END 2018-08-12 09:54 | disposition home or self-care (01) ==
LOC: OR 06:16
PROVIDERS: ATTEND Surgery
DX: N64.52 Nipple discharge (principal); N62 Hypertrophy of breast; D24.2 Benign neoplasm of left breast; E03.9 Hypothyroidism, unspecified; K21.9 Gastro-esophageal reflux disease without esophagitis; E78.5 Hyperlipidemia, unspecified; Z87.891 Personal history of nicotine dependence; Z85.3 Personal history of malignant neoplasm of breast
CPT/HCPCS: 88307; 88341; 88342; J1100; J1644; J2250; J2270; J2405; J2704; J3010

== ENCOUNTER 2019-08-16 11:51 | Emergency (ER) | payer OTHER, BC ==
--- OUTSIDE RECORDS SUMMARY | 2019-08-16 12:06 | XMS REPORT | Continuity of Care Document ---
:1960 External Reference #:[id number] Author Name Babita Arciniega M.D. (transmitted by agent of provider Dorota Franco) Address [address] [place] [address] Care Team Providers Name Role Phone Adria Carroll MD - Internal Care Team Information Staffing Administrator [phone] Medicine Aruna Jaimes MD - Hematology & Care Team Information Staffing Administrator [phone] Oncology Problems Active Problems Provider Date Arthroplasty of knee Babita Arciniega M.D. Onset: 08/26/2016 Periprosthetic osteolysis Babita Arciniega M.D. 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 Onset: 11/04/2016 Localized, primary osteoarthritis Babita Arciniega M.D. Onset: 04/28/2019 Social History Type Date Description Comments Sex Unknown ETOH Use Denies alcohol use Tobacco Use Start: Unknown End: Patient is a former smoker Unknown Smoking Status Reviewed: 08/09/19 Patient is a former smoker Exercise Type/Frequency Exercises sporadically Allergies, Adverse Reactions, Alerts Active Allergies Reaction Severity Comments Date Augmentin Urticaria Moderate 08/26/2016 Medications Active Medications SIG Qnty Indications Ordering Provider Date Meloxicam Take One Tablet 90tabs Kieran Garcia, 03/14/2019 15mg Tablets By Mouth Every M.D. Day With Food as Needed Maximum Daily Dose = 1 Tablet Levothyroxine Sodium once a day Unknown 100mcg Solution Rec Crestor 1 by mouth every Unknown 10mg Tablets day Effexor 1 by mouth twice Unknown 75mg Caps ER 24HR a day Vitamin D 1 by mouth every Unknown 5000Unit day Capsules Omeprazole 1 by mouth every Unknown 20mg Capsules day DR Santillan 1 tablet by Unknown 0.5mg Tablets mouth three times a day as needed Provigil Unknown 200mg Tablets Milam one tab by mouth Unknown 5-325mg Tablets every 4-6 hours as needed pain Medications Administered in Office Medication SIG Qnty Indications Ordering Provider Date Depomedrol 40MG Babita Arciniega M.D. 04/28/2019 Injection Immunizations Description No Information Available Vital Signs Date Vital Result Comment 08/09/2019 9:05am Height 66 inches 5'6" Weight 225.00 lb Heart Rate 100 /min BP Systolic 122 mmHg BP Diastolic 88 mmHg Respiratory Rate 16 /min Body Temperature 97.6 F Pain Level 6 BMI (Body Mass Index) 36.3 kg/m2 04/28/2019 3:30pm Height 66 inches 5'6" Weight 225.00 lb BP Systolic 130 mmHg BP Diastolic 84 mmHg Body Temperature 97.8 F BMI (Body Mass Index) 36.3 kg/m2 Results Test Date Facility Test Result H/L Range Note Laboratory test 02/23/2019 [facility] Surgical SEE RESULT [address] Pathology BELOW [place] [id number] [phone] 1 SEE RESULT BELOW Name: AMANEricSOFY : [address]: Ginger Lange MD Acct: [id number] Unit: [id number] AGE: 58 Location: [facility] Re02/23/19 SEX: F Status: REG REF SPEC: [id number] FIDELIA: 02/23/19-9577 [facility] DR: Ginger Lange MD REQ: [id number] RECD: 02/23/19 STATUS: SOUT _ ORDERED: LEVEL 4 COMMENTS: [id number] FINAL DIAGNOSIS Right breast, excision: --Skin and subcutaneous tissue with prior biopsy site related changes with organizing hematoma with foreign body giant cell reaction. -- No evidence of neoplasia is identified. CLINICAL HISTORY Breast cancer PRE-OPERATIVE DIAGNOSIS GROSS DESCRIPTION The specimen is received in formalin labeled, Right Breast Hematoma Cavity, and consists of a 2.6 x 0.5 cm benoit-white wrinkled elliptical skin fragment excised to maximum depth of 1.5 cm with a central 0.2 x 0.2 cm benoit friable defect. There is a 0.8 x 0.5 x 0.4 cm benoit previously disrupted cavity within the subcutaneous tissue. The specimen is inked, serially sectioned and entirely submitted in cassettes A and B to include cavity in cassette B. Signed by and Reported on: Keshav Stevenson MD 1506 END OF REPORT DEPARTMENT OF PATHOLOGY, [address] [place] [address] Keshav Setvenson M.D. Director [facility] # [id number] Procedures Date Code Description Status 08/09/201957116 Inject/Drain Joint/Bursa Major W/O US Completed 04/28/2019 99495 Inject/Drain Joint/Bursa Major W/O US Completed 02/23/2019 01903 Mastotomy W/Explore/Drain Abscess Deep Completed 01/13/2019 [id number] Mammogram Completed 01/28/2018 [id number] Mammogram Completed Medical Devices Description No Information Available Encounters Type Date Location Provider Dx Diagnosis Office Visit 06/14/2019 [facility] Laboy S21.001D Unspecified open 2:00p AT [facility] [place] [facility] wound of right breast, subsequent encounter Office Visit 04/28/2019 [facility] Babita Arciniega, M25.561 Pain in right knee 2:45p at [facility] M25.461 Effusion, right knee M17.11 Unilateral primary osteoarthritis, right knee Z96.652 Presence of left artificial knee joint Z47.1 Aftercare following joint replacement surgery Office Visit 02/22/2019 9:00a Surgical Ginger Laboy S21.001S [facility] wound of right [employer] Supervisor breast, sequela Assessments Date Code Description Provider 08/09/2019 M25.561 Pain in right knee Babita Arciniega M.D. 08/09/2019 M25.461 Effusion, right knee Babita Arciniega M.D. 08/09/2019 M17.11 Unilateral primary osteoarthritis, right Babita Arciniega M.D. knee 06/14/2019 S21.001D Unspecified open wound of right breast, Ginger Lnage MD subsequent encounter 05/10/2019 S21.001D Unspecified open wound of right breast, Ginger Lange MD subsequent encounter 05/03/2019 S21.001D Unspecified open wound of right breast, Ginger Lange MD subsequent encounter 04/28/2019 M25.561 Pain in right knee Babita Arciniega M.D. 04/28/2019 M25.461 Effusion, right knee Babita Arciniega M.D. 04/28/2019 M17.11 Unilateral primary osteoarthritis, right Babita Arciniega M.D. knee 04/28/2019 Z96.652 Presence of left artificial knee joint Babita Arciniega M.D. 04/28/2019 Z47.1 Aftercare following joint replacement Babita Arciniega M.D. surgery 04/19/2019 S21.001D Unspecified open wound of right breast, Ginger Lange MD subsequent encounter 04/05/2019 S21.001D Unspecified open wound of right breast, Ginger Lange MD subsequent encounter 03/29/2019 S21.001D Unspecified open wound of right breast, Tiago Carlson MD subsequent encounter 03/22/2019 S21.001A Unspecified open wound of right breast, Tiago Carlson MD initial encounter 03/15/2019 S21.001D Unspecified open wound of right breast, Tiago Carlson MD subsequent encounter 03/08/2019 S21.001A Unspecified open wound of right breast, Ginger Lange MD initial encounter 03/01/2019 S21.001A Unspecified open wound of right breast, Ginger Lange MD initial encounter 02/23/2019 N61.1 Abscess of the breast and nipple Ginger Lange MD 02/23/2019 S21.001S Unspecified open wound of right breast, Ginger Lange MD sequela 02/22/2019 S21.001S Unspecified open wound of right breast, Ginger Lange MD sequela Plan of Treatment Future Appointment(s):11/10/2019 9:00 am - Babita Arciniega M.D. at [facility]/09/2019 - Babita Arciniega M.D.M25.561 Pain in right kneeFollow up:Follow up: 3 cqcyzjL40.461 Effusion, right kneeM17.11 Unilateral primary osteoarthritis, right knee Functional Status Description No Information Available Mental Status Description No Information Available Referrals Refer to Dr Reason for Referral Status Appt Date Wound Clinic Closed 03/01/[address] [place] [id number] [phone]
[2019-08-16] MEDS ORDERED: Acetaminophen TAB* 325 MG PO ONE (14:08)
--- NOTE | 2019-08-16 14:09 | ED ---
Upper Extremity Pain - HPI Summary HPI Summary: Patient is a 58-year-old female who presents emergency department for left- sided rib pain and left elbow pain after fall that occurred today. Patient states her daughter had a deer and she went to the road to help when she lost her balance and fell landing onto her left side. Patient denies head injury or loss of consciousness. She denies prior lightheadedness, dizziness, chest pain or shortness of breath. Symptoms are mild in severity. Touching areas symptoms worse. Rest makes symptoms better. Is not anticoagulated. No significant past medical history. - History of Current Complaint Chief Complaint: EDChestWallPain Stated Complaint: LT ARM HEMATOMA FROM FALL PER PT Time Seen by Provider: 08/16/19 13:48 Hx Obtained From: Patient - Allergies/Home Medications Allergies/Adverse Reactions: Allergies Allergy/AdvReac Type Severity Reaction Status Date / Time amoxicillin [From Augmentin] Allergy hives, Verified 08/12/18 07:08 itching clavulanic acid Allergy hives, Verified 08/12/18 07:08 [From Augmentin] itching PMH/Surg Hx/FS Hx/Imm Hx Previously Healthy: Yes Endocrine/Hematology History: Reports: Hx Thyroid Disease - goiter- partial thyroidectomy. Denies: Hx Anticoagulant Therapy Cardiovascular History: Reports: Hx Hypertension - no meds Denies: Other Cardiovascular Problems/Disorders Respiratory History: Reports: Hx Sleep Apnea Denies: Hx Asthma, Other Respiratory Problems/Disorders GI History: Reports: Hx Gastroesophageal Reflux Disease Denies: Other GI Disorders Musculoskeletal History: Reports: Hx Arthritis - osteoarthritis, knee, left hip Denies: Hx Osteoporosis, Other Musculoskeletal History Sensory History: Reports: Hx Contacts or Glasses - reading Denies: Hx Hearing Aid Opthamlomology History: Reports: Hx Contacts or Glasses - reading Neurological History: Denies: Other Neuro Impairments/Disorders Psychiatric History: Reports: Hx Anxiety - on meds - Cancer History Hx Chemotherapy: Yes - 2 rounds 2018 Hx Radiation Therapy: Yes - finished radiation 06/04 right breast, seroma dev. rt - Surgical History Surgery Procedure, Year, and Place: cholecystectomy, 1988 , partial lt knee replacement, 2014. hysterectomy, 2004, [facility]. partial thyroidectomy, 2013,. gastric sleeve, 2015. RIGHT AND LEFT LUMPECTOMY [facility] 2018 Hx Anesthesia Reactions: No Infectious Disease History: No Infectious Disease History: Denies: Traveled Outside the [place] in Last 30 Days - Family History Known Family History: Positive: Non-Contributory - Social History Occupation: Unemployed Lives: With Family Alcohol Use: Rare Alcohol Amount: 6-7 per year Substance Use Type: Reports: Prescribed Hx Tobacco Use: No Smoking Status (MU): Former Smoker Amount Used/How Often: 1/2 pack Have You Smoked in the Last Year: No Review of Systems Cardiovascular: Other - Left sided chest wall pain Respiratory: Negative Negative: Shortness Of Breath Gastrointestinal: Negative Negative: Other - left elbow pain Positive: Bruising Neurological: Negative Negative: Headache, Weakness, Paresthesia, Numbness, Syncope All Other Systems Reviewed And Are Negative: Yes Physical Exam Triage Information Reviewed: Yes Vital Signs On Initial Exam: Initial Vitals Temp Pulse Resp BP Pulse Ox 97.8 F 69 18 124/82 97 08/16/19 11:59 08/16/19 11:59 08/16/19 11:59 08/16/19 11:59 08/16/19 11:59 Vital Signs Reviewed: Yes Appearance: Positive: Well-Appearing - Pt. sitting in chair in NAD. present. Skin: Positive: Warm, Dry Head/Face: Positive: Normal Head/Face Inspection Eyes: Positive: Normal, EOMI Neck: Positive: Supple, Nontender Respiratory/Lung Sounds: Positive: Clear to Auscultation, Breath Sounds Present Cardiovascular: Positive: Normal, RRR Abdomen Description: Positive: Nontender, Soft Musculoskeletal: Positive: Other - Left anterior rib pain under left breast. Ecchymosis and edema to left elbow with decreased ROM. Good radial pulse. No neurosensory deficits. Neurological: Positive: Normal, CN Intact II-III Procedures - Sedation Patient Received Moderate/Deep Sedation with Procedure: No Diagnostics - Vital Signs Vital Signs Temp Pulse Resp BP Pulse Ox 08/16/19 11:59 97.8 F 69 18 124/82 97 - Laboratory Lab Statement: Any lab studies that have been ordered have been reviewed, and results considered in the medical decision making process. Course/Dx - Course Course Of Treatment: Patient presenting for rib pain and left elbow pain after mechanical fall. Tylenol was given for pain in the ER. Rib x-rays negative for acute findings. Elbow x-ray shows effusion in the joint concerning for occult fracture which clinically is concerning, reading was per radiology. Patient was placed in a long posterior arm splint and sling. Advised to ice and elevate intermittently. Patient will call orthopedics today for close follow-up appointment. Patient notes she has pain medication at home she can take. Patient discharged home with her . - Diagnoses Differential Diagnosis/HQI/PQRI: Positive: Contusion, Fracture (Closed), Strain , Sprain Provider Diagnoses: Rib contusion, Occult fracture of elbow Discharge ED - Sign-Out/Discharge Documenting (check all that apply): Patient Departure - Discharge Plan Condition: Good Disposition: HOME Patient Education Materials: Elbow Fracture (ED), Rib Fracture (ED) Referrals: Sachin Flynn MD [Medical Doctor] - Caryl CARPIO,Adria Ramos [Primary Care Provider] - Additional Instructions: Call orthopedic clinic today for a follow up appointment Keep splint in place Ice and elevate Tylenol or motrin for pain as directed Return to ER if symptoms change or worsen - Billing Disposition and Condition Condition: GOOD Disposition: Home - Attestation Statements Provider Attestation: I was available for consult. This patient was seen by the ROSIE. The patient was not presented to, seen by, or examined by me. -Tamika
[2019-08-16 15:34] VITALS: BP 138/86
== END 2019-08-16 15:29 | disposition home or self-care (01) ==
LOC: ED 11:51
DX: S20.219A Contusion of unspecified front wall of thorax, initial encounter (principal); S42.402A Unspecified fracture of lower end of left humerus, initial encounter for closed fracture; W19.XXXA Unspecified fall, initial encounter; Y92.410 Unspecified street and highway as the place of occurrence of the external cause; I10 Essential (primary) hypertension; K21.9 Gastro-esophageal reflux disease without esophagitis; F41.9 Anxiety disorder, unspecified; E03.9 Hypothyroidism, unspecified; Z90.49 Acquired absence of other specified parts of digestive tract; Z90.710 Acquired absence of both cervix and uterus; Z96.652 Presence of left artificial knee joint; Z87.891 Personal history of nicotine dependence; Z79.899 Other long term (current) drug therapy; Z88.1 Allergy status to other antibiotic agents; Z88.0 Allergy status to penicillin
CPT/HCPCS: 93005; 99282; A9270-GY